=== PATIENT | male | born 1955 | race Caucasian/White ===

== ENCOUNTER 2017-07-02 18:41 | Emergency (ER) | payer MEDICAID ==
[~2017-07-02] VITALS: Ht 165.1 cm; Wt 66.0 kg
[2017-07-02] MEDS ORDERED: BACITRACIN ZINC OINT UDPKT TOP ONE (20:30)
[2017-07-02] MEDS ORDERED: LIDOCAINE HCL 1% 20ML VIAL (Pyxis) INJ MC ONE (20:30)
[2017-07-02 21:10] LABS: BASOPHILS % 0.9 % (0.0-2.0); EOSINOPHILS % 9.1 % (0.0-5.0); HEMATOCRIT. 39.4 % (42.0-52.0); HEMOGLOBIN. 13.2 g/dL (14.0-18.0); LYMPHOCYTES % 19.4 % (20.0-50.0); MEAN CORPUSCULAR HEMOGLOBIN 30.1 pg (28.0-32.0); MEAN CORPUSCULAR VOLUME 89.7 fL (80.0-94.0); MONOCYTES % 9.8 % (2.0-8.0); NEUTROPHILS % 60.8 % (40.0-76.0); PLATELET 618 x1000/uL (130-400); RED BLOOD CELL COUNT 4.39 mill/uL (4.7-6.1); RED CELL DISTRIBUTION WIDTH 13.8 % (11.6-14.6)
[2017-07-02 21:13] LABS: PROTHROMBIN TIME 10.2 sec (9.4-11.6)
[2017-07-02 21:19] LABS: CHLORIDE 101 mEq/L (98-107)
[2017-07-02] MEDS ORDERED: LEVOFLOXACIN 750MG PREMIX 150 ML IV ONE (22:45)
[2017-07-03] MEDS ORDERED: COLCHICINE 0.6MG TABLET PO SCH (00:15)
[2017-07-03 03:04] VITALS: BP 147/94
[2017-07-03] MEDS: COLCHICINE 0.6MG TABLET PO SCH ×2 (03:12→03:13)
== END 2017-07-03 03:15 | disposition home or self-care (01) ==
LOC: ER 21:25 → CANBEDREQ 07-03 05:08
DX: M10.9 Gout, unspecified (principal); R70.0 Elevated erythrocyte sedimentation rate; D72.829 Elevated white blood cell count, unspecified; M79.604 Pain in right leg
CPT/HCPCS: 20610; 36415; 71045; 73562; 80053; 83605; 84145; 85025; 85610; 85651; 87040; 87070; 87205; 89050; 89060; 93005; 96365; 99285; J1956; J3490

== ENCOUNTER 2017-09-02 13:14 | Inpatient (IN) | payer MEDICAID ==
[~2017-09-02] VITALS: Ht 165.1 cm; Wt 85.7 kg
[2017-09-02] MEDS ORDERED: SODIUM CHLORIDE 0.9% 1,000 ML IV ONE ×2 (13:59→16:34)
[2017-09-02] MEDS ORDERED: ONDANSETRON HCL 4MG/2ML VIAL IV ONE (14:00)
[2017-09-02 14:44] LABS: HEMATOCRIT. 53.4 % (42.0-52.0); HEMOGLOBIN. 16.1 g/dL (14.0-18.0); MEAN CORPUSCULAR HEMOGLOBIN 29.9 pg (28.0-32.0); MEAN CORPUSCULAR VOLUME 99.4 fL (80.0-94.0); MEAN PLATELET VOLUME 8.3 fl (7.4-10.4); PLATELET 460 x1000/uL (130-400); RED BLOOD CELL COUNT 5.38 mill/uL (4.7-6.1); RED CELL DISTRIBUTION WIDTH 16.6 % (11.6-14.6)
[2017-09-02 14:50] LABS: CHLORIDE 93 mEq/L (98-107)
[2017-09-02 14:51] LABS: PROTHROMBIN TIME 10.7 sec (9.4-11.6)
[2017-09-02 15:37] LABS: BG BASE EXCESS -9.8 mmol/L (-2.0-2.0); BG CARBOXYHEMOGLOBIN 0.6 % (0.5-1.5); BG DEOXYHEMOGLOBIN 2.9 % (0.0-5.0); BG HCO3 ACT 14.9 mmol/L (22.0-26.0); BG METHEMOGLOBIN 0.5 % (0.0-1.5); BG OXYGEN SATURATION 97.1 % (92.0-98.5); BG PCO2 30.5 mmHg (35.0-45.0); BG PH 7.306 (7.350-7.450); BG PO2 100.2 mmHg (75.0-100.0); BG SAMPLE SITE RIGHT RADIAL; BG TOTAL HEMOGLOBIN 17.2 g/dL (12.0-18.0); BG VENT MODE ROOM AIR
[2017-09-02 15:47] LABS: PLATELET ESTIMATE INCREASED
[2017-09-02] MEDS ORDERED: SODIUM CHLORIDE 0.9% 1,000 ML IV STA (15:56)
[2017-09-02] MEDS ORDERED: INSULIN REGULAR (DRIP) 100 UNITS in SODIUM CHLORIDE 0.9% 100 ML IV NR (16:15)
[2017-09-02 16:35] LABS: CLARITY URINE CLEAR (CLEAR); COLOR URINE YELLOW (YELLOW); KETONES URINE 2+ (NEGATIVE); LEUKOCYTE ESTERASE URINE NEGATIVE (NEGATIVE); NITRITE URINE NEGATIVE (NEGATIVE); OCCULT BLOOD URINE 2+ (NEGATIVE); PROTEIN URINE TRACE (NEGATIVE); SPECIFIC GRAVITY URINE 1.035 (1.005-1.030); UROBILINOGEN URINE 0.2 E.U./dL (0.2-1.0)
[2017-09-02 16:38] LABS: PHOSPHORUS 4.9 mg/dL (2.5-4.9)
[2017-09-02] MEDS ORDERED: ONDANSETRON HCL 4MG/2ML VIAL IV PRN (19:15)
[2017-09-02] MEDS ORDERED: IPRATROPIUM/ALBUTEROL 0.5-3(2.5)MG/3ML NEB INH PRN (19:15)
[2017-09-02] MEDS ORDERED: INSULIN REGULAR (DRIP) 100 UNITS in SODIUM CHLORIDE 0.9% 100 ML IV SCH (19:15)
[2017-09-02] MEDS ORDERED: CEFTRIAXONE 1 G PREMIX 50 ML IV SCH ×3 (19:15→22:00)
[2017-09-02 19:44] LABS: PHOSPHORUS 2.2 mg/dL (2.5-4.9)
[2017-09-02] MEDS ORDERED: SODIUM CHLORIDE 0.9% 1,000 ML IV SCH (20:00)
[2017-09-02] MEDS ORDERED: DEXT 5%/0.9% NACL 1,000 ML IV SCH (20:15)
[2017-09-02] MEDS ORDERED: SODIUM CHL 0.9% + KCL 20MEQ/L 1,000 ML IV SCH (20:15)
[2017-09-02] MEDS ORDERED: DEXT 5%/0.9% NACL KCL 20MEQ/L 1,000 ML IV SCH (20:15)
[2017-09-02] MEDS: ENOXAPARIN 40MG/0.4ML SYR SUBCUT SCH (21:00)
[2017-09-02 21:29] LABS: PHOSPHORUS 1.7 mg/dL (2.5-4.9)
[2017-09-03] VITALS (12 sets, daily range): BP systolic 117–165; BP diastolic 80–114
[2017-09-03 01:21] LABS: CHLORIDE 121 mEq/L (98-107)
[2017-09-03] MEDS ORDERED: POTASSIUM CHLORIDE INJ 40 MEQ in DEXT 5% WATER 500 ML IV ONE (03:15)
[2017-09-03] MEDS ORDERED: METOCLOPRAMIDE HCL 10MG/2ML VIAL IV ONE (05:00)
[2017-09-03 05:58] LABS: EOSINOPHILS % 0.9 % (0.0-5.0); HEMATOCRIT. 43.6 % (42.0-52.0); HEMOGLOBIN. 14.4 g/dL (14.0-18.0); LYMPHOCYTES % 12.6 % (20.0-50.0); MEAN CORPUSCULAR VOLUME 90.4 fL (80.0-94.0); MEAN PLATELET VOLUME 7.6 fl (7.4-10.4); NEUTROPHILS % 77.5 % (40.0-76.0); PLATELET 387 x1000/uL (130-400); RED BLOOD CELL COUNT 4.82 mill/uL (4.7-6.1); RED CELL DISTRIBUTION WIDTH 15.6 % (11.6-14.6)
[2017-09-03 06:03] LABS: CHLORIDE 123 mEq/L (98-107)
[2017-09-03 06:14] LABS: LDL CHOLESTEROL 97 mg/dL (5-100)
[2017-09-03 06:16] LABS: HDL CHOLESTEROL 44 mg/dL (40-59)
[2017-09-03 08:02] LABS: CHLORIDE 123 mEq/L (98-107)
[2017-09-03] MEDS ORDERED: DEXTROSE 50% WATER 50ML SYRINGE IV PRN ×3 (11:45→17:30)
[2017-09-03] MEDS ORDERED: INSULIN GLARGINE UD 100 UNITS/ML SYR SUBCUT SCH ×2 (12:00→22:00)
[2017-09-03] MEDS ORDERED: INSULIN LISPRO (HIGH DOSE) 100 UNITS/ML SUBCUT SCH ×2 (12:00→14:00)
[2017-09-03] MEDS ORDERED: BLOOD SUGAR DIAGNOSTIC STRIP TEST SCH ×2 (12:00→14:00)
[2017-09-03] MEDS ORDERED: INSULIN LISPRO 100 UNITS/ML SUBCUT SCH (12:50)
[2017-09-03] MEDS ORDERED: SODIUM CHLORIDE 0.45% 1,000 ML IV SCH (13:45)
[2017-09-03] MEDS: PIPERACILLIN/TAZ 3.375G PREMIX 50 ML IV SCH ×2 (14:30→23:42)
[2017-09-03 16:57] LABS: BG BASE EXCESS -5.7 mmol/L (-2.0-2.0); BG CARBOXYHEMOGLOBIN 0.9 % (0.5-1.5); BG FRACTION INSPIRED OXYGEN 21; BG HCO3 ACT 18.3 mmol/L (22.0-26.0); BG METHEMOGLOBIN 0.3 % (0.0-1.5); BG OXYHEMOGLOBIN 95.8 % (94.0-97.0); BG PCO2 32.3 mmHg (35.0-45.0); BG PH 7.371 (7.350-7.450); BG PO2 88.5 mmHg (75.0-100.0); BG SAMPLE SITE RIGHT RADIAL; BG VENT MODE ROOM AIR
[2017-09-03] MEDS: CLOTRIMAZOLE 10MG TROCHE MM SCH ×2 (18:00→21:00)
[2017-09-03] MEDS ORDERED: POTASSIUM PHOS,M-BASIC-D-BASIC 30 MMOL in DEXT 5% WATER 500 ML IV NR (18:00)
[2017-09-03] MEDS: BLOOD SUGAR DIAGNOSTIC STRIP TEST SCH ×6 (18:58→23:00)
[2017-09-03] MEDS: INSULIN REGULAR (DRIP) 100 UNITS in SODIUM CHLORIDE 0.9% 100 ML IV SCH (18:59)
[2017-09-03] MEDS: DEXTROSE 5% WATER 1,000 ML IV SCH (22:21)
[2017-09-03] MEDS: ENOXAPARIN 40MG/0.4ML SYR SUBCUT SCH (22:32)
[2017-09-04] VITALS (42 sets, daily range): BP systolic 73–172; BP diastolic 53–109
[2017-09-04] MEDS: BLOOD SUGAR DIAGNOSTIC STRIP TEST SCH ×18 (07:00→23:00)
[2017-09-04] MEDS: PIPERACILLIN/TAZ 3.375G PREMIX 50 ML IV SCH ×3 (07:44→21:59)
[2017-09-04] MEDS: DEXTROSE 5% WATER 1,000 ML IV SCH ×2 (07:57→18:01)
[2017-09-04] MEDS: CLOTRIMAZOLE 10MG TROCHE MM SCH ×4 (09:00→21:10)
[2017-09-04 09:21] LABS: BASOPHILS % 0.5 % (0.0-2.0); EOSINOPHILS % 4.3 % (0.0-5.0); HEMATOCRIT. 43.7 % (42.0-52.0); HEMOGLOBIN. 14.4 g/dL (14.0-18.0); LYMPHOCYTES % 14.7 % (20.0-50.0); MEAN CORPUSCULAR HEMOGLOBIN 29.7 pg (28.0-32.0); MEAN CORPUSCULAR VOLUME 90.3 fL (80.0-94.0); MEAN PLATELET VOLUME 7.7 fl (7.4-10.4); MONOCYTES % 7.4 % (2.0-8.0); NEUTROPHILS % 73.1 % (40.0-76.0); PLATELET 314 x1000/uL (130-400); RED BLOOD CELL COUNT 4.84 mill/uL (4.7-6.1)
[2017-09-04] MEDS: AMLODIPINE 5MG TABLET PO SCH (09:57)
[2017-09-04 10:09] LABS: CHLORIDE 123 mEq/L (98-107)
[2017-09-04 10:15] LABS: PHOSPHORUS 4.7 mg/dL (2.5-4.9)
[2017-09-04 10:16] LABS: AMYLASE 72 IU/L (25-115)
[2017-09-04] MEDS ORDERED: LOSARTAN POTASSIUM 25 MG TABLET PO NR (10:30)
[2017-09-04] MEDS: HYDRALAZINE HCL 10MG TABLET PO SCH ×2 (15:22→21:10)
[2017-09-04] MEDS ORDERED: ALLO100T PO (15:36)
[2017-09-04] MEDS ORDERED: ATOR40TA70 PO (15:36)
[2017-09-04] MEDS ORDERED: QUIN40TA14 PO (15:36)
[2017-09-04] MEDS ORDERED: AMLO5TAB4 PO (15:36)
[2017-09-04] MEDS ORDERED: SITA1TBM7 PO (15:36)
[2017-09-04] MEDS: INSULIN REGULAR (DRIP) 100 UNITS in SODIUM CHLORIDE 0.9% 100 ML IV SCH (21:08)
[2017-09-04] MEDS: ENOXAPARIN 40MG/0.4ML SYR SUBCUT SCH (21:10)
[2017-09-04] MEDS ORDERED: POTASSIUM CHLORIDE INJ 60 MEQ in DEXT 5% WATER 500 ML IV NR (23:30)
[2017-09-05] VITALS (47 sets, daily range): BP systolic 77–170; BP diastolic 44–96
[2017-09-05] MEDS ORDERED: DEXT 5% WATER + KCL 20MEQ/L 1,000 ML IV SCH ×2 (01:00→07:00)
[2017-09-05] MEDS: BLOOD SUGAR DIAGNOSTIC STRIP TEST SCH ×18 (01:04→20:25)
[2017-09-05] MEDS: HYDRALAZINE HCL 10MG TABLET PO SCH (05:19)
[2017-09-05 05:45] LABS: BASOPHILS % 0.3 % (0.0-2.0); EOSINOPHILS % 6.8 % (0.0-5.0); HEMATOCRIT. 39.9 % (42.0-52.0); HEMOGLOBIN. 13.3 g/dL (14.0-18.0); LYMPHOCYTES % 25.4 % (20.0-50.0); MEAN CORPUSCULAR VOLUME 89.8 fL (80.0-94.0); MEAN PLATELET VOLUME 7.6 fl (7.4-10.4); MONOCYTES % 6.5 % (2.0-8.0); PLATELET 249 x1000/uL (130-400); RED BLOOD CELL COUNT 4.45 mill/uL (4.7-6.1); RED CELL DISTRIBUTION WIDTH 15.2 % (11.6-14.6)
[2017-09-05 06:07] LABS: CHLORIDE 108 mEq/L (98-107)
[2017-09-05] MEDS: PIPERACILLIN/TAZ 3.375G PREMIX 50 ML IV SCH ×3 (06:07→22:56)
[2017-09-05 06:11] LABS: AMYLASE 59 IU/L (25-115)
[2017-09-05 06:13] LABS: PHOSPHORUS 3.5 mg/dL (2.5-4.9)
[2017-09-05] MEDS: CLOTRIMAZOLE 10MG TROCHE MM SCH (08:22)
[2017-09-05] MEDS ORDERED: LOSARTAN POTASSIUM 25 MG TABLET PO SCH (09:00)
[2017-09-05] MEDS: AMLODIPINE 5MG TABLET PO SCH (09:00)
[2017-09-05] MEDS ORDERED: POTASSIUM CHLORIDE 20MEQ TABLET SR PO NR (11:00)
[2017-09-05] MEDS ORDERED: BISACODYL 10MG SUPP PR SCH (11:45)
[2017-09-05] MEDS ORDERED: BISACODYL 10MG SUPP PR PRN (11:45)
[2017-09-05] MEDS: FLUCONAZOLE 100MG TABLET PO SCH (12:20)
[2017-09-05] MEDS ORDERED: MAGNESIUM 2 G PREMIX 50 ML IV NR (12:30)
[2017-09-05] MEDS: OMEPRAZOLE 20MG CAPSULE EXTENDED RELEASE PO SCH (13:20)
[2017-09-05] MEDS: POTASSIUM CHLORIDE INJ 30 MEQ in SODIUM CHLORIDE 0.45% 1,000 ML IV SCH ×2 (13:26→22:10)
[2017-09-05] MEDS ORDERED: DEXTROSE 50% WATER 50ML SYRINGE IV PRN (15:00)
[2017-09-05] MEDS: INSULIN GLARGINE UD 100 UNITS/ML SYR SUBCUT SCH (16:35)
[2017-09-05] MEDS: DOCUSATE SODIUM 100MG CAPSULE PO SCH (17:00)
[2017-09-05] MEDS: INSULIN LISPRO 100 UNITS/ML SUBCUT SCH ×3 (18:53→21:03)
[2017-09-05] MEDS: ENOXAPARIN 40MG/0.4ML SYR SUBCUT SCH (20:58)
[2017-09-06] VITALS (7 sets, daily range): BP systolic 92–109; BP diastolic 44–80
[2017-09-06] MEDS: PIPERACILLIN/TAZ 3.375G PREMIX 50 ML IV SCH ×3 (05:44→21:08)
[2017-09-06] MEDS: POTASSIUM CHLORIDE INJ 30 MEQ in SODIUM CHLORIDE 0.45% 1,000 ML IV SCH (05:44)
[2017-09-06] MEDS: BLOOD SUGAR DIAGNOSTIC STRIP TEST SCH ×5 (06:21→23:49)
[2017-09-06] MEDS: OMEPRAZOLE 20MG CAPSULE EXTENDED RELEASE PO SCH (06:46)
[2017-09-06 07:31] LABS: BASOPHILS % 0.7 % (0.0-2.0); EOSINOPHILS % 10.3 % (0.0-5.0); HEMATOCRIT. 40.6 % (42.0-52.0); HEMOGLOBIN. 13.4 g/dL (14.0-18.0); LYMPHOCYTES % 28.4 % (20.0-50.0); MEAN CORPUSCULAR HEMOGLOBIN 30.1 pg (28.0-32.0); MONOCYTES % 8.1 % (2.0-8.0); NEUTROPHILS % 52.5 % (40.0-76.0); PLATELET 196 x1000/uL (130-400); RED BLOOD CELL COUNT 4.46 mill/uL (4.7-6.1); RED CELL DISTRIBUTION WIDTH 15.7 % (11.6-14.6)
[2017-09-06 08:07] LABS: CHLORIDE 108 mEq/L (98-107)
[2017-09-06 08:19] LABS: AMYLASE 43 IU/L (25-115)
[2017-09-06 08:25] LABS: PHOSPHORUS 3.2 mg/dL (2.5-4.9)
[2017-09-06] MEDS: AMLODIPINE 2.5MG TABLET PO SCH (09:00)
[2017-09-06] MEDS: INSULIN LISPRO 100 UNITS/ML SUBCUT SCH ×7 (10:01→21:20)
[2017-09-06] MEDS: INSULIN GLARGINE UD 100 UNITS/ML SYR SUBCUT SCH (10:03)
[2017-09-06] MEDS: FLUCONAZOLE 100MG TABLET PO SCH (10:03)
[2017-09-06] MEDS: DOCUSATE SODIUM 100MG CAPSULE PO SCH ×2 (10:03→18:15)
[2017-09-06 10:31] LABS: AMYLASE 42 IU/L (25-115)
[2017-09-06] MEDS: SODIUM CHLORIDE 0.45% 1,000 ML IV SCH (15:52)
[2017-09-06] MEDS: ENOXAPARIN 40MG/0.4ML SYR SUBCUT SCH (20:28)
[2017-09-07] MEDS: SODIUM CHLORIDE 0.45% 1,000 ML IV SCH ×4 (00:51→21:18)
[2017-09-07] MEDS: BLOOD SUGAR DIAGNOSTIC STRIP TEST SCH ×5 (02:15→21:22)
[2017-09-07 03:43] VITALS: BP 106/60
[2017-09-07] MEDS: PIPERACILLIN/TAZ 3.375G PREMIX 50 ML IV SCH ×3 (06:47→21:12)
[2017-09-07] MEDS: OMEPRAZOLE 20MG CAPSULE EXTENDED RELEASE PO SCH (06:48)
[2017-09-07 08:00] VITALS: BP 103/74
[2017-09-07] MEDS: AMLODIPINE 2.5MG TABLET PO SCH (08:19)
[2017-09-07] MEDS: INSULIN LISPRO 100 UNITS/ML SUBCUT SCH ×4 (08:34→21:27)
[2017-09-07] MEDS: FLUCONAZOLE 100MG TABLET PO SCH (08:34)
[2017-09-07] MEDS: DOCUSATE SODIUM 100MG CAPSULE PO SCH ×2 (08:35→16:48)
[2017-09-07 09:01] LABS: PHOSPHORUS 3.4 mg/dL (2.5-4.9)
[2017-09-07 10:19] LABS: BASOPHILS % 0.5 % (0.0-2.0); EOSINOPHILS % 11.6 % (0.0-5.0); HEMATOCRIT. 40.9 % (42.0-52.0); HEMOGLOBIN. 13.5 g/dL (14.0-18.0); LYMPHOCYTES % 33.2 % (20.0-50.0); MEAN CORPUSCULAR HEMOGLOBIN 30.3 pg (28.0-32.0); MEAN CORPUSCULAR VOLUME 91.9 fL (80.0-94.0); MEAN PLATELET VOLUME 8.5 fl (7.4-10.4); MONOCYTES % 8.4 % (2.0-8.0); NEUTROPHILS % 46.3 % (40.0-76.0); PLATELET 188 x1000/uL (130-400); RED BLOOD CELL COUNT 4.45 mill/uL (4.7-6.1); RED CELL DISTRIBUTION WIDTH 15.4 % (11.6-14.6)
[2017-09-07] MEDS: INSULIN GLARGINE UD 100 UNITS/ML SYR SUBCUT SCH (11:04)
[2017-09-07 12:00] VITALS: BP 116/80
[2017-09-07 16:00] VITALS: BP 119/80
[2017-09-07 20:00] VITALS: BP 143/86
[2017-09-07] MEDS ORDERED: ACETAMINOPHEN 325MG TABLET PO PRN (20:15)
[2017-09-07] MEDS: ENOXAPARIN 40MG/0.4ML SYR SUBCUT SCH (21:11)
[2017-09-08] VITALS: BP 92/55
[2017-09-08 04:00] VITALS: BP 109/56
[2017-09-08] MEDS: PIPERACILLIN/TAZ 3.375G PREMIX 50 ML IV SCH ×3 (06:36→21:14)
[2017-09-08] MEDS: OMEPRAZOLE 20MG CAPSULE EXTENDED RELEASE PO SCH (06:36)
[2017-09-08] MEDS: BLOOD SUGAR DIAGNOSTIC STRIP TEST SCH ×4 (06:39→21:00)
[2017-09-08] MEDS: INSULIN LISPRO 100 UNITS/ML SUBCUT SCH ×4 (06:45→21:13)
[2017-09-08 07:19] LABS: BASOPHILS % 0.5 % (0.0-2.0); EOSINOPHILS % 10.4 % (0.0-5.0); HEMATOCRIT. 37.3 % (42.0-52.0); HEMOGLOBIN. 12.4 g/dL (14.0-18.0); LYMPHOCYTES % 23.8 % (20.0-50.0); MEAN CORPUSCULAR HEMOGLOBIN 30.5 pg (28.0-32.0); MEAN CORPUSCULAR VOLUME 91.6 fL (80.0-94.0); MEAN PLATELET VOLUME 8.5 fl (7.4-10.4); MONOCYTES % 10.2 % (2.0-8.0); NEUTROPHILS % 55.1 % (40.0-76.0); PLATELET 176 x1000/uL (130-400); RED BLOOD CELL COUNT 4.07 mill/uL (4.7-6.1); RED CELL DISTRIBUTION WIDTH 15.4 % (11.6-14.6)
[2017-09-08 07:53] VITALS: BP 137/88
[2017-09-08 07:55] LABS: PHOSPHORUS 3.2 mg/dL (2.5-4.9)
[2017-09-08] MEDS ORDERED: MAGNESIUM 2 G PREMIX 50 ML IV NR (10:00)
[2017-09-08] MEDS: COLCHICINE 0.6MG TABLET PO SCH (11:03)
[2017-09-08] MEDS: AMLODIPINE 2.5MG TABLET PO SCH (11:03)
[2017-09-08] MEDS: FLUCONAZOLE 100MG TABLET PO SCH (11:03)
[2017-09-08] MEDS: DOCUSATE SODIUM 100MG CAPSULE PO SCH ×2 (11:03→18:14)
[2017-09-08] MEDS: INSULIN GLARGINE UD 100 UNITS/ML SYR SUBCUT SCH (11:11)
[2017-09-08 11:56] VITALS: BP 143/88
[2017-09-08] MEDS: SODIUM CHLORIDE 0.45% 1,000 ML IV SCH (13:24)
[2017-09-08] MEDS ORDERED: SIMETHICONE 80MG TABLET CHEW PO PRN (15:30)
[2017-09-08 15:56] VITALS: BP 137/83
[2017-09-08 20:00] VITALS: BP 118/74
[2017-09-08] MEDS: ENOXAPARIN 40MG/0.4ML SYR SUBCUT SCH (21:14)
[2017-09-09] VITALS: BP 100/59
[2017-09-09 04:00] VITALS: BP 119/70
[2017-09-09] MEDS: SODIUM CHLORIDE 0.45% 1,000 ML IV SCH ×2 (05:13→09:24)
[2017-09-09] MEDS: PIPERACILLIN/TAZ 3.375G PREMIX 50 ML IV SCH ×2 (05:35→16:13)
[2017-09-09] MEDS: BLOOD SUGAR DIAGNOSTIC STRIP TEST SCH ×3 (06:28→17:20)
[2017-09-09] MEDS: OMEPRAZOLE 20MG CAPSULE EXTENDED RELEASE PO SCH (06:33)
[2017-09-09 07:30] LABS: BASOPHILS % 0.3 % (0.0-2.0); EOSINOPHILS % 5.7 % (0.0-5.0); HEMATOCRIT. 34.9 % (42.0-52.0); HEMOGLOBIN. 11.3 g/dL (14.0-18.0); LYMPHOCYTES % 20.1 % (20.0-50.0); MEAN CORPUSCULAR HEMOGLOBIN 29.5 pg (28.0-32.0); MEAN CORPUSCULAR VOLUME 90.9 fL (80.0-94.0); MEAN PLATELET VOLUME 8.7 fl (7.4-10.4); MONOCYTES % 12.2 % (2.0-8.0); NEUTROPHILS % 61.7 % (40.0-76.0); PLATELET 201 x1000/uL (130-400); RED BLOOD CELL COUNT 3.84 mill/uL (4.7-6.1); RED CELL DISTRIBUTION WIDTH 15.2 % (11.6-14.6)
[2017-09-09 07:50] LABS: CHLORIDE 105 mEq/L (98-107)
[2017-09-09 07:52] VITALS: BP 111/73
[2017-09-09 08:03] LABS: PHOSPHORUS 2.5 mg/dL (2.5-4.9)
[2017-09-09 09:06] LABS: CANCER ANTIGEN 125 17.4 U/mL (Not Estab.)
[2017-09-09] MEDS: FLUCONAZOLE 100MG TABLET PO SCH (09:20)
[2017-09-09] MEDS: DOCUSATE SODIUM 100MG CAPSULE PO SCH ×2 (09:20→17:30)
[2017-09-09] MEDS: AMLODIPINE 2.5MG TABLET PO SCH (09:21)
[2017-09-09] MEDS: INSULIN LISPRO 100 UNITS/ML SUBCUT SCH ×3 (09:24→18:33)
[2017-09-09] MEDS ORDERED: INSLIS SUBCUT (10:48)
[2017-09-09] MEDS ORDERED: LANTUSUD SUBCUT (10:48)
[2017-09-09] MEDS ORDERED: MY80 PO (10:48)
[2017-09-09] MEDS ORDERED: FLUC100T PO (10:48)
[2017-09-09] MEDS ORDERED: AMLO2.5T45 PO (10:48)
[2017-09-09] MEDS ORDERED: OMEP20CA10 PO (10:48)
[2017-09-09 12:53] VITALS: BP 125/76
[2017-09-09] MEDS: COLCHICINE 0.6MG TABLET PO SCH (13:20)
[2017-09-09] MEDS: INSULIN GLARGINE UD 100 UNITS/ML SYR SUBCUT SCH (13:24)
[2017-09-09 16:36] VITALS: BP 117/82
[2017-09-09 18:54] VITALS: BP 120/74
== END 2017-09-09 19:55 | disposition home or self-care (01) | DRG 282 ==
LOC: CANRESERV 15:45 → ER 15:53 → 6WST 16:09 → ENRESERV 16:11 → CANRESERV 16:11 → EDBEDREQ 16:13 → EDBEDREQSVC 16:13 → EDBEDREQTM 16:13 → ENRESERV 09-03 06:57 → CANRESERV 09-03 06:57 → EDBEDREQSVC 09-03 10:02 → ENRESERV 09-03 11:46 → CVICU 09-03 18:38 → 6WST 09-05 18:32
PROVIDERS: ADMIT Internal Medicine; ATTEND Internal Medicine
DX: K85.90 Acute pancreatitis without necrosis or infection, unspecified (principal); J96.00 Acute respiratory failure, unspecified whether with hypoxia or hypercapnia; E43 Unspecified severe protein-calorie malnutrition; G93.41 Metabolic encephalopathy; E11.10 Type 2 diabetes mellitus with ketoacidosis without coma; N17.9 Acute kidney failure, unspecified; I95.9 Hypotension, unspecified; R65.10 Systemic inflammatory response syndrome (SIRS) of non-infectious origin without acute organ dysfunction; E11.43 Type 2 diabetes mellitus with diabetic autonomic (poly)neuropathy; K31.84 Gastroparesis; E87.0 Hyperosmolality and hypernatremia; I10 Essential (primary) hypertension; E86.0 Dehydration; E83.39 Other disorders of phosphorus metabolism; B37.0 Candidal stomatitis; M10.9 Gout, unspecified; R91.1 Solitary pulmonary nodule; M89.9 Disorder of bone, unspecified; B35.9 Dermatophytosis, unspecified; E78.1 Pure hyperglyceridemia; Z79.899 Other long term (current) drug therapy; Z79.4 Long term (current) use of insulin; Z68.31 Body mass index [BMI] 31.0-31.9, adult; Z82.49 Family history of ischemic heart disease and other diseases of the circulatory system
CPT/HCPCS: 36415; 36600; 70450; 71045; 71250; 74176; 76705; 80048; 80053; 80061; 81003; 82010; 82150; 82375; 82805; 82962; 83036; 83690; 83735; 83880; 84100; 84153; 84484; 84550; 85025; 85610; 86300; 86301; 86304; 87040; 87086; 87106; 93005; 93970; 96361; 96365; 96366; 96367; 99291; J0696; J1650; J1815; J2405; J2543; J2765; J3475; J3480; J3490; J7030; J7040; J7050; J7060; J7070